=== PATIENT | female | born 1995 | race Caucasian/White ===

== ENCOUNTER 2017-10-16 17:00 | Emergency (ER) | payer SELFPAY ==
[~2017-10-16] VITALS: Ht 170.2 cm; Wt 76.0 kg
[~2017-10-16 17:00] MED LIST: IBUP600 PO
[2017-10-16 17:21] VITALS: BP 129/63; PULSE 80; RESP 16; TEMP 99; O2SAT 100
--- NOTE | 2017-10-16 18:28 | PD ---
HPI Chief Complaint: ENT Complaint Time Seen by Provider: 18:13 Travel History International Travel<30 days: No Contact w/Intl Traveler<30days: No Traveled to known affect area: No History of Present Illness HPI 22-year-old female presents for evaluation of sore throat. Symptoms started a few days ago. Associated low-grade fevers. She reports a sore pain when she swallows with no alleviating factors. Denies rash, cough, congestion. No sick contacts. No other complaints. PFSH Past Medical History ADHD: Yes Bipolar Disorder: Yes Diminished Hearing: No Psychiatric: Yes (MOOD DISORDER) Immunizations Current: Yes Tetanus Vaccination: Unknown Influenza Vaccination: No ?: Unknown LMP: 09/22/17 : 0 Past Surgical History Surgical History: No Previous Surgery Social History Alcohol Use: Yes (SOCIA;;Y) Tobacco Use: No (QUIT 5 YRS AGO) Substance Use: No Allergies-Medications (Allergen,Severity, Reaction): Coded Allergies: saccharin (Unverified Adverse Reaction, Mild, Irritation, 10/16/17) Reported Meds & Prescriptions Reported Meds & Active Scripts Active No Active Prescriptions or Reported Medications Review of Systems Except as stated in HPI: all other systems reviewed are Neg Physical Exam Narrative GENERAL: Well-nourished female in no acute distress SKIN: Warm and dry. HEAD: Atraumatic. Normocephalic. EYES: Pupils equal and round. No scleral icterus. No injection or drainage. ENT: No nasal bleeding or discharge. Mucous membranes pink and moist. Pharyngeal erythema without exudate. NECK: Trachea midline. No JVD. CARDIOVASCULAR: Regular rate and rhythm. No murmur appreciated. RESPIRATORY: No accessory muscle use. Clear to auscultation. Breath sounds equal bilaterally. Data Data Last Documented VS Vital Signs Date Time Temp Pulse Resp B/P (MAP) Pulse Ox O2 Delivery O2 Flow Rate FiO2 10/16/17 17:21 99.0 80 16 129/63 (85) 100 Orders Orders Group A Rapid Strep Screen (10/16/17 18:13) Strep Culture (Group A) (10/16/17 18:15) Ed Discharge Order (10/16/17 18:53) MDM Medical Decision Making Medical Screen Exam Complete: Yes Emergency Medical Condition: Yes Medical Record Reviewed: Yes Differential Diagnosis Pharyngitis, tonsillitis, peritonsillar abscess, infectious mononucleosis, herpangina, influenza Narrative Course Rapid strep is negative. She appears to have a mild viral pharyngitis. Stable for discharge. Diagnosis Primary Impression: Pharyngitis Departure Forms: Tests/Procedures, Work Release Enter return to work date: Oct 18, 2017 Med/Other Pt SpecificInfo: No Change to Meds Scripts No Active Prescriptions or Reported Meds Disposition: 01 DISCHARGE HOME Condition: Stable Gaudencio Alexander Oct 16, 2017 18:28
== END 2017-10-16 19:27 | disposition home or self-care (01) ==
LOC: PHED 17:00 → PHEFT 19:27
DX: J02.9 Acute pharyngitis, unspecified (principal); B95.4 Other streptococcus as the cause of diseases classified elsewhere; F90.9 Attention-deficit hyperactivity disorder, unspecified type; F31.9 Bipolar disorder, unspecified
CPT/HCPCS: 86403; 87081; 87880; 99283

== ENCOUNTER 2017-11-03 03:14 | Emergency (ER) | payer SELFPAY ==
[~2017-11-03] VITALS: Ht 170.2 cm; Wt 76.6 kg
[2017-11-03 03:15] VITALS: BP 136/83; PULSE 77; RESP 18; TEMP 98.3; O2SAT 100
[2017-11-03] MEDS ORDERED: PENI250T PO (03:25)
[2017-11-03 04:02] LABS: AUTOMATED NEUTROPHIL # 5.1 TH/MM3 (1.8-7.7); BASOPHIL % 0.5 % (0.0-2.0); EOSINOPHIL # 0.1 TH/MM3 (0-0.4); EOSINOPHIL % 1.8 % (0.0-4.0); HEMATOCRIT 30.4 % (35.0-46.0); HEMOGLOBIN 9.5 GM/DL (11.6-15.3); LYMPH % 20.5 % (9.0-44.0); LYMPHOCYTE # 1.6 TH/MM3 (1.0-4.8); MEAN CELL VOLUME 72.7 FL (80.0-100.0); MEAN CORPUSCULAR HEMOGLOBIN 22.7 PG (27.0-34.0); MEAN CORPUSCULAR HGB CONC 31.2 % (32.0-36.0); MEAN PLATELET VOLUME 9.6 FL (7.0-11.0); MONO % 14.7 % (0.0-8.0); MONOCYTE # 1.2 TH/MM3 (0-0.9); NEUT % 62.5 % (16.0-70.0); PLATELET COUNT 324 TH/MM3 (150-450); RED BLOOD COUNT 4.18 MIL/MM3 (4.00-5.30); RED CELL DISTRIBUTION WIDTH 16.7 % (11.6-17.2)
[2017-11-03 04:03] LABS: BILIRUBIN, URINE NEG (NEG); BLOOD, URINE MOD (NEG); GLUCOSE,URINE NEG (NEG); KETONE, URINE NEG (NEG); NITRITE,URINE NEG (NEG); PH, URINE 6.5 (5.0-8.5); URINE LEUKOCYTE ESTERASE LARGE (NEG)
[2017-11-03 04:09] LABS: URINE COLOR STRAW (YELLW/STRAW)
[2017-11-03 04:10] LABS: BACTERIA, URINE OCC /hpf; SQUAMOUS EPITHELIAL CELL URINE > 8 /hpf (0-5)
[2017-11-03 04:23] LABS: OVALOCYTES 1+ (NORMAL)
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
[2017-11-03] MEDS ORDERED: CIPR-9 PO (04:51)
[2017-11-03] MEDS ORDERED: NITROFURANTOIN MONOHYD MACROCR 100 MG CAP PO ONE (05:00)
[2017-11-03 05:18] VITALS: BP 139/79
== END 2017-11-03 05:25 | disposition home or self-care (01) ==
LOC: PHED 03:14
DX: N93.8 Other specified abnormal uterine and vaginal bleeding (principal); N39.0 Urinary tract infection, site not specified; B96.89 Other specified bacterial agents as the cause of diseases classified elsewhere
CPT/HCPCS: 81001; 84702; 84703; 85025; 87086; 99283

== ENCOUNTER 2017-11-27 18:45 | Emergency (ER) | payer SELFPAY ==
[~2017-11-27] VITALS: Ht 170.2 cm; Wt 76.0 kg
[~2017-11-27 18:45] MED LIST changes: +CIPR-9 PO; -IBUP600 PO; +PENI250T PO
[2017-11-27 19:00] VITALS: BP 134/77; PULSE 77; RESP 16; TEMP 98.6; O2SAT 100
--- NOTE | 2017-11-27 20:23 | PD ---
Data Data Last Documented VS Vital Signs Date Time Temp Pulse Resp B/P (MAP) Pulse Ox O2 Delivery O2 Flow Rate FiO2 11/27/17 19:00 98.6 77 16 134/77 (96) 100 Orders Orders Ed Poc Ultrasound (11/27/17 ) Lidocaine 1% Inj (Xylocaine 1% Inj) (11/27/17 20:30) Ed Urine Pregnancytest Poc (11/27/17 20:20) Ed Discharge Order (11/27/17 20:57) Wound Culture And Gram Stain (11/27/17 21:04) MDM Supervised Visit with SKY: Yes Narrative Course I, Dr. Alberto, have reviewed the advance practice practitioner's documentation and am in agreement, met with the patient face to face, made the diagnosis, and the medical decision making was done by me. *My assessment and Findings: Patient seen and examined by me in addition to Nahid Crockett PA-C, this patient appears to have an uncomplicated abscess, I have ultrasounded the patient's abscess and she has a 1.5 x 1.5 x 1.5 cm abscess subcutaneously. Does not communicate with the abdominal contents. She appears well, no nausea no vomiting. She states that her boyfriend are trying to become and is a possibility now. We will send UPT, she was advised by me did not try to become until this abscess clears up. Will be incised and drained, UPT is pending at this time Procedures Procedure Narrative Bedside ultrasound: Bedside ultrasound of the abdomen soft tissue was performed , uncomplicated abscess 1.5 x 1.5 x 1.5 cm, no communication with the anterior abdominal contents. Amenable to ER drainage Scripts Cephalexin (Keflex) 500 Mg Cap 500 MG PO Q6H for Infection for 10 Days, #40 CAP 0 Refills Prov: Kishore Alberto MD 11/27/17 Sulfamethoxazole-Trimethoprim (Bactrim DS) 800-160 Mg Tab 1 TAB PO BID for Infection for 10 Days, #20 TAB 0 Refills Prov: Kishore Alberto MD 11/27/[address] (Diclofenac Sodium DR) 75 Mg Tabdr 75 MG PO BID Y for PAIN SCALE 1 TO 10, #20 TAB 0 Refills Prov: Kishore Alberto MD 11/27/17 Kishore Alberto MD Nov 27, 2017 20:23
[2017-11-27] MEDS ORDERED: LIDOCAINE HCL 1% 20 ML VIAL INFIL ONE (20:30)
--- NOTE | 2017-11-27 21:02 | PD ---
HPI Chief Complaint: Skin Problem Time Seen by Provider: 20:01 Travel History International Travel<30 days: No Contact w/Intl Traveler<30days: No Traveled to known affect area: No History of Present Illness HPI 22-year-old female that presents to the ED for evaluation of skin lesion to her right lower abdomen. Per patient's her like a pimple about 3 days ago and she popped it herself. Per patient ever since is becoming bigger and more swollen. The patient his painful with touch. 6 out of10. She denies any other medical issues. No previous injuries. No history of MRSA or IV drugs. States been up- to-date with tetanus. Been worsening for the past 3 days. No other medical issues. No drainage from it. Has not seen anybody for this. PFSH Past Medical History Hx Anticoagulant Therapy: No ADHD: Yes Bipolar Disorder: Yes Diminished Hearing: No Psychiatric: Yes (MOOD DISORDER) Immunizations Current: Yes ?: Unknown : 0 Social History Alcohol Use: Yes ("EVERY ONCE IN AWHILE") Tobacco Use: No (QUIT AGE 21) Substance Use: No Allergies-Medications (Allergen,Severity, Reaction): Coded Allergies: saccharin (Unverified Adverse Reaction, Mild, Irritation, 11/27/17) Reported Meds & Prescriptions Reported Meds & Active Scripts Active Keflex (Cephalexin) 500 Mg Cap 500 Mg PO Q6H 10 Days Bactrim DS (Sulfamethoxazole-Trimethoprim) 800-160 Mg Tab 1 Tab PO BID [address] (Diclofenac Sodium) 75 Mg Tabdr 75 Mg PO BID PRN Cipro (Ciprofloxacin HCl) 500 Mg Tab 500 Mg PO BID 10 Days Reported Penicillin V Potassium 250 Mg Tab 250 Mg PO DAILY Review of Systems Except as stated in HPI: all other systems reviewed are Neg Physical Exam Narrative GENERAL: SKIN: Warm and dry. Patient has an area of induration on the right lower quadrant. About 2 cm in diameter. Patient does have erythema on the skin what appears to be an opening starting to develop. HEAD: Atraumatic. Normocephalic. EYES: Pupils equal and round. No scleral icterus. No injection or drainage. ENT: No nasal bleeding or discharge. Mucous membranes pink and moist. NECK: Trachea midline. No JVD. CARDIOVASCULAR: Regular rate and rhythm. RESPIRATORY: No accessory muscle use. Clear to auscultation. Breath sounds equal bilaterally. GASTROINTESTINAL: Abdomen soft, non-tender, nondistended. Hepatic and splenic margins not palpable. MUSCULOSKELETAL: Extremities without clubbing, cyanosis, or edema. No obvious deformities. NEUROLOGICAL: Awake and alert. No obvious cranial nerve deficits. Motor grossly within normal limits. Five out of 5 muscle strength in the arms and legs. Normal speech. PSYCHIATRIC: Appropriate mood and affect; insight and judgment normal. Data Data Last Documented VS Vital Signs Date Time Temp Pulse Resp B/P (MAP) Pulse Ox O2 Delivery O2 Flow Rate FiO2 11/27/17 19:00 98.6 77 16 134/77 (96) 100 Orders Orders Ed Poc Ultrasound (11/27/17 ) Lidocaine 1% Inj (Xylocaine 1% Inj) (11/27/17 20:30) Ed Urine Pregnancytest Poc (11/27/17 20:20) Ed Discharge Order (11/27/17 20:57) Wound Culture And Gram Stain (11/27/17 21:04) [facility] Medical Decision Making Medical Screen Exam Complete: Yes Emergency Medical Condition: Yes Medical Record Reviewed: Yes Differential Diagnosis abscess vs cellulitis vs insect bite Narrative Course 22-year-old female that presents to the ED for evaluation of abscess. Patient was properly examined and was found to have signs and symptoms consistent appears to be abscess. Case was discussed in my attending who did an ultrasound on the patient and agrees to this is an abscess and should be drained. After splint proceeded to the patient and she agreed to it abscess was incised and dressing. No. Culture was taken. About 4 cc of purulence was obtained. Patient was given a prescription for Bactrim and Keflex. Patient was told to apply warm compresses. Recheck in 48 hours. See ED worsening symptoms. Follow with PCP. Procedures Procedure Narrative After the risks and benefits were discussed the following procedure was performed: INCISION AND DRAINAGE OF ABSCESS: The area was prepped and was sterilely draped. A subcutaneous wheal of 1 % Xylocaine with a total number 5 mL was used to anesthetize the area. The area was properly anesthetized. A number 11 scalpel was used to make a 1 -cm incision across the area of the abscess. Cultures were obtained. The abscess was drained an irrigated with normal saline. Quarter inch iodoform packing was placed in the wound. Sterile dressing applied. Patient advised to have packing removed in two days. Diagnosis Primary Impression: Abscess Patient Instructions: General Instructions Additional Instructions: The packing removed in 48 hours. Take antibiotics as prescribed. See ED worsening symptoms. Follow with PCP. Med/Other Pt SpecificInfo: Prescription(s) given, Wound Care Scripts Cephalexin (Keflex) 500 Mg Cap 500 MG PO Q6H for Infection for 10 Days, #40 CAP 0 Refills Prov: Kishore Alberto MD 11/27/17 Sulfamethoxazole-Trimethoprim (Bactrim DS) 800-160 Mg Tab 1 TAB PO BID for Infection for 10 Days, #20 TAB 0 Refills Prov: Kishore Alberto MD 11/27/[address] (Diclofenac Sodium DR) 75 Mg Tabdr 75 MG PO BID Y for PAIN SCALE 1 TO 10, #20 TAB 0 Refills Prov: Kishore Alberto MD 11/27/17 Disposition: 01 DISCHARGE HOME Condition: Stable Nahid Crockett Nov 27, 2017 21:02
[2017-11-27] MEDS ORDERED: BACT800T5 PO (21:04)
[2017-11-27] MEDS ORDERED: CEPH-460 PO (21:04)
[2017-11-27] MEDS ORDERED: DICL75TA PO (21:04)
== END 2017-11-27 21:15 | disposition home or self-care (01) ==
LOC: PHED 18:45 → PHEFT 21:15
DX: L02.211 Cutaneous abscess of abdominal wall (principal); B95.62 Methicillin resistant Staphylococcus aureus infection as the cause of diseases classified elsewhere; F31.9 Bipolar disorder, unspecified
CPT/HCPCS: 10061; 84703; 86403; 87070; 87186; 87205

== ENCOUNTER 2018-01-24 21:06 | Emergency (ER) | payer SELFPAY ==
[~2018-01-24] VITALS: Ht 170.2 cm; Wt 74.7 kg
[~2018-01-24 21:06] MED LIST changes: +BACT800T5 PO; +CEPH-460 PO; +DICL75TA PO
[2018-01-24 21:16] VITALS: BP 123/72; PULSE 90; RESP 16; TEMP 100; O2SAT 100
[2018-01-24] MEDS ORDERED: BACT800T5 PO (21:40)
--- NOTE | 2018-01-24 21:40 | PD ---
HPI Chief Complaint: Lump tO breast Time Seen by Provider: 21:37 Travel History International Travel<30 days: No Contact w/Intl Traveler<30days: No Traveled to known affect area: No History of Present Illness HPI Patient states that she has had a developing lump, redness and tenderness over her left breast since about 4 days ago. Patient has been applying topical antibiotic and not improving. Patient denies any alleviating or aggravating factors. Patient denies any other sick contacts. Patient denies any associated factors such as fever, chest pain, abdominal pain, back pain, flank pain. Patient states allergy to saccharin Past medical history and surgical history is not significant PFSH Past Medical History Hx Anticoagulant Therapy: No ADHD: Yes Bipolar Disorder: Yes Diminished Hearing: No Psychiatric: Yes (MOOD DISORDER) Immunizations Current: Yes : 0 Social History Alcohol Use: Yes ("EVERY ONCE IN AWHILE") Tobacco Use: No (QUIT AGE 21) Substance Use: No Allergies-Medications (Allergen,Severity, Reaction): Coded Allergies: saccharin (Unverified Adverse Reaction, Mild, Irritation, 11/27/17) Reported Meds & Prescriptions Reported Meds & Active Scripts Active Keflex (Cephalexin) 500 Mg Cap 500 Mg PO Q6H 10 Days Bactrim DS (Sulfamethoxazole-Trimethoprim) 800-160 Mg Tab 1 Tab PO BID [address] (Diclofenac Sodium) 75 Mg Tabdr 75 Mg PO BID PRN Cipro (Ciprofloxacin HCl) 500 Mg Tab 500 Mg PO BID 10 Days Reported Penicillin V Potassium 250 Mg Tab 250 Mg PO DAILY Review of Systems General / Constitutional: No: Fever Eyes: No: Visual changes HENT: No: Headaches Cardiovascular: No: Chest Pain or Discomfort Respiratory: No: Shortness of Breath Gastrointestinal: No: Abdominal Pain Genitourinary: No: Dysuria Musculoskeletal: No: Pain Skin: Positive Rash, Positive Lumps Neurologic: No: Weakness Psychiatric: No: Depression Endocrine: No: Polydipsia Hematologic/Lymphatic: No: Easy Bruising Physical Exam Narrative GENERAL: SKIN: Warm and dry. Patient on the medial aspect superior quadrant of her left breast has a 1.5 cm induration, surrounded by a 5 cm erythema, no fluctuance, no streaking, no lymphadenopathy. HEAD: Atraumatic. Normocephalic. EYES: Pupils equal and round. No scleral icterus. No injection or drainage. ENT: No nasal bleeding or discharge. Mucous membranes pink and moist. NECK: Trachea midline. No JVD. CARDIOVASCULAR: Regular rate and rhythm. RESPIRATORY: No accessory muscle use. Clear to auscultation. Breath sounds equal bilaterally. GASTROINTESTINAL: Abdomen soft, non-tender, nondistended. MUSCULOSKELETAL: Extremities without clubbing, cyanosis, or edema. No obvious deformities. NEUROLOGICAL: Awake and alert. No obvious cranial nerve deficits. Motor grossly within normal limits. Five out of 5 muscle strength in the arms and legs. Normal speech. PSYCHIATRIC: Appropriate mood and affect; insight and judgment normal. Data Data Last Documented VS Vital Signs Date Time Temp Pulse Resp B/P (MAP) Pulse Ox O2 Delivery O2 Flow Rate FiO2 01/24/18 21:16 100.0 90 16 123/72 (89) 100 MDM Medical Decision Making Medical Screen Exam Complete: Yes Emergency Medical Condition: Yes Medical Record Reviewed: Yes Diagnosis Primary Impression: Cellulitis of left breast Scripts Sulfamethoxazole-Trimethoprim (Bactrim DS) 800-160 Mg Tab 1 TAB PO BID for Infection, #20 TAB 0 Refills Prov: Alfred Swann MD 01/24/18 Disposition: 01 DISCHARGE HOME Condition: Stable Alfred Swann MD January 24, 2018 21:40
[2018-01-24] MEDS ORDERED: SULFAMETHOXAZOLE-TRIMETHOPRIM 400-80 MG TAB PO ONE (21:45)
== END 2018-01-24 22:41 | disposition home or self-care (01) ==
LOC: PHEFT 21:06
DX: N61.0 Mastitis without abscess (principal); F90.9 Attention-deficit hyperactivity disorder, unspecified type; F31.9 Bipolar disorder, unspecified; F39 Unspecified mood [affective] disorder; Z87.891 Personal history of nicotine dependence; Z88.8 Allergy status to other drugs, medicaments and biological substances; Z79.899 Other long term (current) drug therapy
CPT/HCPCS: 99283